=== PATIENT | male | born 1975 | race Caucasian/White ===

== ENCOUNTER 2022-02-17 10:48 | Outpatient (REF) | payer BC, SELFPAY ==
--- NOTE | ~2022-02-17 | XR_ITS ---
EXAMINATION: XR CHEST CLINICAL INFORMATION: Chest pain COMPARISON: Previous chest x-ray February 2015 TECHNIQUE: 2 views of the chest were obtained. FINDINGS: No significant abnormality is noted involving the heart, lungs, mediastinum, bony thorax or soft tissues. XR/XR chest 2V IMPRESSION: Unremarkable examination.
== END 2022-02-17 10:49 | disposition home or self-care (01) ==
LOC: HO.XRAY 10:48
PROVIDERS: PCP Internal Medicine; Visit Provider Internal Medicine
DX: R07.89 Other chest pain (principal)
CPT/HCPCS: 71046

== ENCOUNTER 2022-05-26 08:36 | Outpatient (REF) | payer BC, SELFPAY ==
--- NOTE | ~2022-05-26 | US_ITS ---
EXAMINATION: US SCROTUM CLINICAL INFORMATION: Left testicular pain. COMPARISON: None TECHNIQUE: A sonogram of the scrotum was performed assessing ramirez-scale appearance and color Doppler flow. Spectral Doppler analysis of the arterial and venous flow were performed in the testes bilaterally. FINDINGS: RIGHT: Right testicle measures 4.33 x 2.55 x 4.22 cm, volume 24.4 mL. No focal testicular parenchymal lesions are visualized. Spectral Doppler analysis of the arterial and venous flow is normal in the right testis. Right epididymal head is normal in size. There is a moderate size right hydrocele with echogenic debris and a right varicocele. Right epididymal Doppler flow is normal. LEFT: Left testicle measures 4.28 x 2.07 x 3.09 cm, volume 14.3 mL. No focal testicular parenchymal lesions are visualized. Spectral Doppler analysis of the arterial and venous flow is normal in the left testis. Left epididymal head is normal in size. There is mild left hydrocele. Also visualized is a small left varicocele. Left epididymal Doppler flow is normal. US/US scrotum IMPRESSION: 1. Bilateral hydroceles, slightly greater on the right with echogenic debris. 2. Bilateral varicoceles, slightly greater on the left. 3. The testes and epididymis are unremarkable.
== END 2022-05-26 08:37 | disposition home or self-care (01) ==
LOC: HO.HMGCX 08:36
PROVIDERS: PCP Internal Medicine; Visit Provider Internal Medicine
DX: N50.812 Left testicular pain (principal)
CPT/HCPCS: 76870

== ENCOUNTER 2023-12-06 09:58 | Outpatient (REF) | payer BC, SELFPAY ==
--- NOTE | ~2023-12-06 | XR_ITS ---
EXAMINATION: XR CHEST CLINICAL INFORMATION: Chest pain. Former smoker. COMPARISON: Chest x-ray 02/17/2022. TECHNIQUE: 2 views of the chest were obtained. FINDINGS: The cardiomediastinal silhouette is within normal limits. No vascular congestion or edema. No focal consolidation. No effusion or pneumothorax. No suspicious osseous lesions. XR/XR chest 2V IMPRESSION: No acute cardiopulmonary findings.
[2023-12-06 10:28] LABS: MANUAL DIFF FLAG NO
[2023-12-06 10:42] LABS: Basophils Percent Auto 0.4 % (0-2); Eosinophils Absolute Auto 0.6 X10*3/uL (0.0-0.4); Eosinophils Percent Auto 9.2 % (0-4); Hemoglobin 16.2 g/dl (14.0-18.0); Imm Gran Abs Auto 0.02 X10*3/uL (0.00-0.03); Imm Gran Pct Auto 0.3 % (0.0-0.4); Lymphocytes Absolute Auto 2.1 X10*3/uL (1.2-4.9); Lymphocytes Percent Auto 31.7 % (20-40); Mean Corpuscular HGB Conc 36.8 g/dl (31.0-36.0); Mean Corpuscular Hemoglobin 29.8 pg (27.0-33.0); Mean Platelet Volume 9.9 fL (9.4-12.4); Monocytes Absolute Auto 0.5 X10*3/uL (0.1-1.2); Neutrophils Absolute Auto 3.4 x10*3/uL (2.0-8.3); Neutrophils Percent Auto 50.4 % (45-73); Platelet Count 264 X10*3/uL (160-400); Red Blood Count 5.43 X10*6/uL (4.60-5.80); White Blood Count 6.8 X10*3/uL (4.8-10.8)
[2023-12-06 11:31] LABS: Alanine Aminotransferase 27 U/L (0-40); Albumin Level 4.6 g/dL (3.5-5.0); Alkaline Phosphatase 57 U/L (39-117); Anion Gap 13 (12-20); Aspartate Amino Transferase 20 U/L (5-37); Bilirubin Total 0.8 mg/dL (0.0-1.0); Blood Urea Nitrogen 17 mg/dL (9-16); Calcium 9.8 mg/dL (8.4-10.2); Carbon Dioxide 24 mmol/L (22-29); Chloride 107 mmol/L (96-108); Estimated Glomerular Filt Rate > 60; Glucose Random 108 mg/dL (60-115); Magnesium 2.1 mg/dL (1.6-2.6); Potassium 4.4 mmol/L (3.3-5.1); Sodium 140 mmol/L (135-145); Total Protein 7.3 g/dL (6.5-8.0)
[2023-12-06 11:49] LABS: Vitamin B12 506 pg/mL (200-900)
== END 2023-12-06 09:59 | disposition home or self-care (01) ==
LOC: HO.XRAY 09:58
PROVIDERS: Absent Provider Internal Medicine; PCP Internal Medicine; Visit Provider Emergency Medicine
DX: R07.9 Chest pain, unspecified (principal); Z87.891 Personal history of nicotine dependence
CPT/HCPCS: 36415; 71046; 80053; 82607; 83735; 84443; 85025

== ENCOUNTER 2023-12-08 14:03 | Outpatient (REF) | payer BC, SELFPAY ==
[2023-12-13 20:49] LABS: Testosterone, Free 49.5 pg/mL (35.0-155.0); Testosterone, Total 396 ng/dL (250-1100)
== END 2023-12-08 14:04 | disposition home or self-care (01) ==
LOC: HO.LAB 14:03
PROVIDERS: Internal Medicine; Visit Provider Emergency Medicine
DX: N50.812 Left testicular pain (principal)
CPT/HCPCS: 36415; 84402; 84403

== ENCOUNTER 2023-12-20 15:05 | Outpatient (REF) | payer BC, SELFPAY ==
[2023-12-20 16:42] LABS: D Dimer High Sensitivity < 150 NG/ML
== END 2023-12-20 15:06 | disposition home or self-care (01) ==
LOC: HO.LAB 15:05
PROVIDERS: Absent Provider Internal Medicine; PCP Internal Medicine; Visit Provider Emergency Medicine
DX: R07.9 Chest pain, unspecified (principal)
CPT/HCPCS: 36415; 85379

== ENCOUNTER 2024-01-26 12:34 | Outpatient (REF) | payer BC, SELFPAY ==
--- NOTE | ~2024-01-26 | MR_ITS ---
MR CERVICAL SPINE WITHOUT CONTRAST CLINICAL INFORMATION: Neck pain with radiculopathy. COMPARISON: None available. TECHNIQUE: Multiplanar multisequence MR imaging of the cervical spine obtained without IV contrast. FINDINGS: Straightening of the cervical lordosis. Vertebral body heights are maintained. There is moderate disc volume loss at C5-C6 and C6-C7. There Modic type I endplate signal changes at C5-C6. There is no additional bone marrow edema. There are no acute fractures. There are Modic type II endplate signal changes at C6-C7. The craniocervical junction is unremarkable. Partially imaged intracranial compartment is unremarkable. Cervical arterial flow voids are maintained. There are no significant extraspinal soft tissue findings. No definite cord signal changes with assessment limited by the degree of artifact. C2-C3: Disc contour is normal. Mild bilateral facet arthropathy. No central canal stenosis and no foraminal stenosis. C3-C4: Small diffuse annular disc bulge. Uncovertebral joint spurring and facet arthropathy result in moderate left and mild right foraminal stenosis. C4-C5: Shallow disc protrusion mildly narrows the central canal. Uncovertebral joint spurring and facet arthropathy result in severe right and moderate to severe left foraminal stenosis. C5-C6: A broad-based central disc protrusion and ligamentum flavum thickening result in moderate to severe central canal stenosis and flattening of the cord. Uncovertebral joint spurring and facet arthropathy result in moderate to severe bilateral foraminal stenosis. C6-C7: Uncovertebral joint spurring and facet arthropathy result in severe bilateral foraminal stenosis. A shallow left paracentral disc protrusion slightly flattens the ventral cord and mildly narrows the central canal. C7-T1: There is a large right paracentral/right foraminal disc extrusion that effaces the right axillary recess and that results in severe right-sided foraminal stenosis with compression of the exiting right C8 nerve root. Central canal remains patent and there is mild left-sided foraminal encroachment. MR/MR cervical spine wo con IMPRESSION: * At C7-T1, there is a large right paracentral/right foraminal disc extrusion that results in effacement of the right axillary recess and severe right-sided foraminal stenosis with compression of the exiting right C8 nerve root. The central canal remains patent post level. * At C5-C6, spondylitic changes result in moderate to severe central canal stenosis and flattening of the cervical spinal cord. * Spondylitic changes result in varying degrees of moderate to severe foraminal stenosis bilaterally throughout the cervical spine as discussed in detail above. * Modic type I endplate signal changes at C5-C6.
--- NOTE | ~2024-01-26 | XR_ITS ---
EXAMINATION: X-ray orbits. CLINICAL INFORMATION: Metallic exposure, pre MRI evaluation for metallic foreign body. COMPARISON: None available. FINDINGS: Two Water's views and a lateral view x-rays of the orbits show intact bony borders. No radiopaque foreign bodies were found. Nasal septum is midline. The visualized paranasal sinuses are clear. XR/XR pre mri screening IMPRESSION: Normal orbits x-ray. No evidence of metallic foreign body.
== END 2024-01-26 12:35 | disposition home or self-care (01) ==
LOC: HO.MRI 12:34
PROVIDERS: PCP Internal Medicine; Visit Provider Internal Medicine
DX: M54.2 Cervicalgia (principal); M54.12 Radiculopathy, cervical region
CPT/HCPCS: 72141

== ENCOUNTER 2024-04-24 14:02 | Outpatient (AMB) | payer BC, SELFPAY ==
--- NOTE | 2024-04-24 14:03 | A.SPINEOV_ITS ---
Intake Visit Reasons: 2nd opinion neck compression Intake Note: Mr. Martinez is here today for a Second opinion on his neck pain. Rhinestone Setter Required: No Allergies Penicillins Allergy (Mild, Verified 04/24/24 14:07) Unknown Assessment & Plan Assessment & Plan (1) Herniation of cervical intervertebral disc with radiculopathy: Code(s): M50.10 - Cervical disc disorder with radiculopathy, unspecified cervical region Category: Medical Plan: Dear colleague Thank you for referring James Martinez to the office today with a chief complaint of neck pain and right hand weakness. HPI: This 49-year-old male developed acute pain on January 11. The pain was located in his right shoulder blade. He went for chiropractic treatment with manipulation. The 2nd treatment resulted in acute numbness and weakness of his right hand with dexterity loss. 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 The good news was that the symptoms partially recovered for 60% in a month time. He continued to have significant bouts of pain located in his right shoulder blade. In addition he developed posterior neck pain after the chiropractic treatment. He saw at [facility] who offered him an anterior diskectomy and fusion C7-T1 to remove a disc herniation. He is actually scheduled to undergo surgery on May 09. He comes in for 2nd opinion to make sure he is making the right decision. The following conservative treatment options were tried without success antiinflammatories, tylenol, chiropractic treatment PMH: Anxiety/depression, GERD Medications: Seroquel. Pain medications p.r.n. Allergies: Penicillin Social history: Engaged. Employed. Physical Exam: Pleasant male. Today's not in obvious agony. There is mild pain on palpation over the right scapular region at neck. Motor exam is grossly intact. Sensation reviews decreased sensation in the hand palm. Reflexes are symmetrically intact. No pathological reflexes. Radiological Studies: MRI done at [facility] on 01/26/2024 shows a lot of motion artifacts. There is significant degenerative disc disease C5-6 and C6-7 and there is a disc herniation C7-T1 compressing the right C8 nerve root. Impression/Plan: This patient is suffering from an acute C8 radiculopathy with neurological deficits after chiropractic manipulation. The MRI confirms a disc herniation C7-T1 on the right side compressing the C8 nerve root. The neurological symptoms have improved but plateaued according to the patient. There is still significant radicular pain to the shoulder blade. I made the patient aware that disc resolution occurs in 95% of the cases and with his neurological improvement I would like to have a repeat MRI to make sure that the disc herniation is still present. If it is then I would offer the patient an artificial disc C7-T1 instead of a fusion in an attempt to limit further progression of the degenerative disc disease at the C5-6 and C6-7 levels and to have the option in the future to at more artificial discs instead of a fusion. The indication for surgery is ongoing pain. I can not give him any guarantee that the subjective weakness and dexterity loss is going to improve. The posterior neck pain may or may not respond to surgery. I scheduled him for a new MRI and we will discuss the results in order for him to make his final decision. Thank you for allowing me to participate in your patients care. total time spent was 50 minutes in counseling ,coordination of plan, personal review of imaging, surgical decision making and subsequent plan Brian Rodriguez MD, PhD Spine Fellowship Trained Neurosurgeon Director, [facility] [place] [facility] Orders: Orders MR cervical spine wo con Today M50.10 - Cervical disc disorder with radiculopathy, unspecified cervical region Coding Level of Care Code New Pt Level 4 (41917) Diagnoses Herniation of cervical intervertebral disc with radiculopathy M50.10
== END 2024-04-24 14:56 | disposition home or self-care (01) ==
PROVIDERS: PCP Internal Medicine; Visit Provider Neurological Surgery
DX: M50.10 Cervical disc disorder with radiculopathy, unspecified cervical region (principal)
CPT/HCPCS: 99204

== ENCOUNTER → 2024-04-24 14:02 | Outpatient (BNVA) | payer BC, SELFPAY | PROVIDERS: PCP Internal Medicine; Visit Provider Neurological Surgery ==

== ENCOUNTER 2024-05-12 20:08 | Outpatient (REF) | payer BC, SELFPAY | END 2024-05-12 20:09 | disposition home or self-care (01) | LOC: HO.MRI 20:08 | PROVIDERS: PCP Internal Medicine; Visit Provider Neurological Surgery | DX: Z13.89 Encounter for screening for other disorder (principal) ==

== ENCOUNTER 2024-05-21 07:21 | Outpatient (REF) | payer BC, SELFPAY | END 2024-05-21 07:22 | disposition home or self-care (01) | LOC: HO.MRI 07:21 | PROVIDERS: PCP Internal Medicine; Visit Provider Neurological Surgery | DX: Z13.89 Encounter for screening for other disorder (principal) ==

== ENCOUNTER 2024-06-12 14:58 | Outpatient (AMB) | payer BC, SELFPAY ==
--- NOTE | 2024-06-12 15:28 | A.SPINEOV_ITS ---
Intake Visit Reasons: MRI follow up Intake Note: Mr. Martinez is here today to discuss the results of his MRI done @ [facility]. Director Quality Systems Required: No Allergies Penicillins Allergy (Mild, Verified 04/24/24 14:07) Unknown Assessment & Plan Assessment & Plan (1) Degenerative disc disease, cervical: Code(s): M50.30 - Other cervical disc degeneration, unspecified cervical region Category: Medical Plan Dear colleague, On 06/12/2024, I saw for follow-up James Martinez to review his new MRI of the cervical spine. As you know, he developed right hand weakness after chiropractic manipulation which fortunately mostly recovered. He is dealing with residual neck pain. He was seen at [facility] where he was told that he need emergent surgery to avoid hand atrophy and permanent nerve damage. He saw me for 2nd opinion. I did not think there was an indication for emergent surgery based on the clinical improvement. The MRI was of a rather poor quality and I decided to repeat the MRI of the cervical spine to see if the herniated disc was still present. The latest MRI shows a near complete resolution of the disc herniation at C7-T1. There is no clear nerve compression visible anymore. There is however the severe degenerative disc disease at C5-6 and C6-7 with also narrowing for the exiting nerve roots. We had an extensive discussion today again. He states that his neck pain is further improving. He is not taking any pain medications. He does have bad days and sometimes have to take time off from work. He denies radiation down his arms. Unfortunately, I can not tell which disc is the reason for his ongoing intermittent neck discomfort. In fact, addressing all the degenerative disc of C5-6, C6-7 and C7-T1 is still not a guarantee for incomplete resolution of symptoms. I advised him to continue further conservative management. I advised him to return to his previous activities, including physical activities. A 1 time epidural cervical steroid injection might be beneficial to further eliminate the residual symptoms. I will send him to Dr.. Lazcano for C7-T1 epidural steroid injection. I will also order a new MRI September 2024. This MRI will be canceled if he is symptom free. I spent 45 minutes in his consult to review imaging, answering questions and discussing plan of care. Thank you for letting me take care of your patient. Do not hesitate to call me with any questions or concerns. Brian Rodriguez MD, PhD Spine Fellowship Trained Neurosurgeon Director, [facility] [place] [facility] Orders: Orders MR cervical spine wo con 09/23/24 M50.10 - Cervical disc disorder with radiculopathy, unspecified cervical region Referrals Physiatry Referral M50.30 - Other cervical disc degeneration, unspecified cervical region Coding Level of Care Code Est Pt Level 5 (06544) Diagnoses Degenerative disc disease, cervical M50.30
== END 2024-06-12 16:32 | disposition home or self-care (01) ==
PROVIDERS: PCP Internal Medicine; Visit Provider Neurological Surgery
DX: M50.30 Other cervical disc degeneration, unspecified cervical region (principal)
CPT/HCPCS: 99215

== ENCOUNTER 2024-07-03 14:35 | Outpatient (AMB) | payer BC, SELFPAY ==
--- NOTE | 2024-07-03 14:39 | HO.SPINEOV ---
Intake Visit Reasons: Discuss possible surgical options Intake Note: Mr. Martinez is here to Discuss Surgical Options. Agile Test Lead Required: No Allergies Penicillins Allergy (Mild, Verified 07/03/24 14:40) Unknown Assessment & Plan Assessment & Plan (1) Degenerative disc disease, cervical: Code(s): M50.30 - Other cervical disc degeneration, unspecified cervical region Category: Medical Plan Dear colleague, On 07/03/2024 saw for follow-up James Martinez. As you know he developed an acute C7-T1 disc herniation with compressing of the right C8 nerve root after chiropractic manipulation. Fortunately, the neurological deficits that arise from this disc herniation have mostly recovered. The latest MRI also shows a resolution of the disc herniation. However, he continues to complain of mild hand weakness, dexterity problems and numbness of the palms of his hands. The original neck pain continues to improve. He denies radiating pain down his arms. His MRI shows severe degenerative disc disease C5-6 and C6-7 with bilateral C6 and C7 foraminal stenosis and nerve root compression. Most likely, the mild function loss of his hands is caused by the C5-C6 abnormality but I can not exclude C6-7. As stated before, the symptoms are not getting worse and may actually improve somewhat. The neck pain is definitely slowly improving. He no longer takes any pain medications. Therefore, I I think waiting to see where he clinically ends is a good option. We can always do a two-level total disc replacement C5-C6, C6-7 if no further improvement occurs. I will continue to monitor the patient. I will follow-up in the beginning of July. I spent 30 minutes in his consult to review imaging, answer questions and to discuss plan of care. Brian Rodriguez MD, PhD Spine Fellowship Trained Neurosurgeon Director, [facility] [place] [facility] Coding Level of Care Code Est Pt Level 4 (61296) Diagnoses Degenerative disc disease, cervical M50.30
== END 2024-07-03 15:22 | disposition home or self-care (01) ==
PROVIDERS: PCP Internal Medicine; Visit Provider Neurological Surgery
DX: M50.30 Other cervical disc degeneration, unspecified cervical region (principal)
CPT/HCPCS: 99214

== ENCOUNTER 2024-07-31 11:01 | Outpatient (REF) | payer BC, SELFPAY ==
[2024-07-31 14:23] LABS: MANUAL DIFF FLAG NO
[2024-07-31 14:37] LABS: Basophils Percent Auto 0.5 % (0-2); Eosinophils Absolute Auto 0.4 X10*3/uL (0.0-0.4); Eosinophils Percent Auto 6.7 % (0-4); Hematocrit 46.8 % (42.0-52.0); Hemoglobin 17.2 g/dl (14.0-18.0); Imm Gran Abs Auto 0.02 X10*3/uL (0.00-0.03); Imm Gran Pct Auto 0.3 % (0.0-0.4); Lymphocytes Absolute Auto 2.1 X10*3/uL (1.2-4.9); Mean Corpuscular HGB Conc 36.8 g/dl (31.0-36.0); Mean Corpuscular Hemoglobin 30.8 pg (27.0-33.0); Mean Corpuscular Volume 83.7 fL (80.0-98.0); Mean Platelet Volume 10.5 fL (9.4-12.4); Monocytes Absolute Auto 0.6 X10*3/uL (0.1-1.2); Monocytes Percent Auto 9.3 % (2-11); Neutrophils Percent Auto 48.2 % (45-73); Platelet Count 229 X10*3/uL (160-400); Red Blood Count 5.59 X10*6/uL (4.60-5.80); Red Cell Distribution Width 13.4 % (11.0-16.0); White Blood Count 6.1 X10*3/uL (4.8-10.8)
[2024-07-31 15:02] LABS: Alanine Aminotransferase 91 U/L (0-40); Albumin Level 4.5 g/dL (3.5-5.0); Alkaline Phosphatase 59 U/L (39-117); Anion Gap 16 (12-20); Aspartate Amino Transferase 49 U/L (5-37); Bilirubin Total 1.2 mg/dL (0.0-1.0); Blood Urea Nitrogen 14 mg/dL (9-16); Calcium 9.4 mg/dL (8.4-10.2); Carbon Dioxide 24 mmol/L (22-29); Chloride 107 mmol/L (96-108); Cholesterol 213 mg/dL (<200); Estimated Glomerular Filt Rate > 60; Glucose Random 118 mg/dL (60-115); HDL Cholesterol 62 mg/dL (>40); LDL Cholesterol Calculated 120 mg/dL (<100); Potassium 4.2 mmol/L (3.3-5.1); Sodium 143 mmol/L (135-145); Total Protein 7.2 g/dL (6.5-8.0); Triglycerides 157 mg/dL (<150)
[2024-07-31 15:19] LABS: TSH reflex Free T4 1.84 uIU/mL (0.32-4.0)
[2024-08-01 07:58] LABS: HIV AB/AG Nonreactive (Nonreactive); HIV Num 1 0.06 S/CO (0.00-0.99); ~HepC Num1 0.07 S/CO (0.00-0.79); ~Hepatitis C Antibody Nonreactive (Nonreactive)
== END 2024-07-31 11:02 | disposition home or self-care (01) ==
LOC: HO.CHCLDS 11:01
PROVIDERS: Visit Provider Internal Medicine
DX: Z00.00 Encounter for general adult medical examination without abnormal findings (principal); E66.812 Obesity, class 2; E66.01 Morbid (severe) obesity due to excess calories; Z68.35 Body mass index [BMI] 35.0-35.9, adult
CPT/HCPCS: 36415; 80053; 80061; 84443; 85025; 86803; 87389